=== PATIENT | female | born 1985 | race Caucasian/White ===

== ENCOUNTER 2018-06-11 14:56 | Emergency (ER) | payer MEDICAID, OTHER ==
[~2018-06-11] VITALS: Ht 165.1 cm; Wt 108.0 kg
[2018-06-11 17:09] VITALS: BP 119/74
== END 2018-06-11 17:11 | disposition home or self-care (01) ==
LOC: ED 17:05
DX: L03.116 Cellulitis of left lower limb (principal)
CPT/HCPCS: 99284